=== PATIENT | male | born 1980 | race Caucasian/White ===

== ENCOUNTER → 2017-06-09 | Outpatient (REF) ==
[~2017-06-09] MED LIST: ASPIRIN 81M81 MG/TA2 PO; COUMADIN 6MG6 MG/TAB PO; IRON325 MG PO; LEVOXYL0.075 MG PO; SYNTHROID 0.0.025 MG PO; VITAMIN C500 MG PO
[2017-06-09 18:09] LABS: IRON,SERUM 52 ug/dL (35-150)
[2017-06-09 18:19] LABS: TOTAL IRON BINDING CAPACITY 218 ug/dL (261-462)
[2017-06-09 19:47] LABS: FERRITIN 1370 ng/mL (18-464)
== END ==
LOC: ZLAB.WCH 17:59
PROVIDERS: Internal Medicine
DX: Z01.89 Encounter for other specified special examinations (principal)

== ENCOUNTER → 2018-04-08 | Outpatient (REF) ==
[2018-04-08 10:33] LABS: THYROID STIMULATING HORMONE 3.47 uIU/mL (0.465-4.680)
== END ==
LOC: ZLAB.WCH 09:42
PROVIDERS: Internal Medicine
DX: Z01.89 Encounter for other specified special examinations (principal)